=== PATIENT | female | born 1955 | race Caucasian/White ===

== ENCOUNTER 2020-05-30 15:45 | Inpatient (IN) | payer OTHER ==
[~2020-05-30] VITALS: Ht 152.4 cm; Wt 44.2 kg
[2020-05-30] MEDS ORDERED: hydrALAzine 20 MG/ML, 1ML ONE (15:57)
[2020-05-30] MEDS ORDERED: PLEASE ENTER HEIGHT AND WEIGHT MC SCH (16:00)
[2020-05-30] MEDS ORDERED: PLEASE ENTER ALLERGIES MC SCH (16:00)
[2020-05-30] MEDS ORDERED: hydrALAzine 20 MG/ML, 1ML IV ONE ×2 (16:00→17:00)
[2020-05-30] MEDS ORDERED: SODIUM CHLORIDE FLUSH 10ML SYR IVF ONE (16:00)
--- NOTE | 2020-05-30 16:00 | NUR ---
Neurology originally pagerd at [phone] Paged again on patient arrival at [phone]
[2020-05-30 16:01] LABS: BASOPHILS # (AUTO) 0.01 x10^3/uL (0-0.1); BASOPHILS % (AUTO) 0 % (0-1); EOSINOPHILS % (AUTO) 0 % (1-7); LYMPHOCYTES # (AUTO) 0.39 x10^3/uL (1-3.4); LYMPHOCYTES % (AUTO) 4 % (22-44); MD NO; MEAN CORPUSCULAR HGB CONC 33.2 g/dL (32.4-35.8); MEAN CORPUSCULAR VOLUME 96.4 fL (80-100); MEAN PLATELET VOLUME 8.3 fL (7.4-10.4); MONOCYTES # (AUTO) 0.22 x10^3/uL (0.2-0.8); MONOCYTES % (AUTO) 2 % (2-9); NEUTROPHILS # (AUTO) 8.38 x10^3/uL (1.8-6.8); NEUTROPHILS % (AUTO) 93 % (42-75); PLATELET COUNT 206 x10^3/uL (130-400); RED BLOOD COUNT 4.49 x10^6/uL (3.82-5.3); RED CELL DISTRIBUTION WIDTH 14.2 % (9.6-15.2)
[2020-05-30 16:13] LABS: ALBUMIN 3.8 g/dL (3.4-5.0); ANION GAP 6 mmol/L (5-15); CALCIUM 8.6 mg/dL (8.5-10.1); CHLORIDE 108 mmol/L (98-107)
--- NOTE | 2020-05-30 16:15 | NUR ---
LATE ENTRY: PT BIB CARE FLIGHT FROM [place] FOR LEFT SIDED WEAKNESS AND SLURRED SPEECH. LAST SEEN NORMAL AT 1030 TODAY. PT WAS SITTING IN HER CHAIR AT HER VACATION HOME AND SAID "ALL OF A SUDDEN I COULDNT GET OUT OF MY CHAIR SO I ROLLED ONTO THE GROUND". PT WAS FOUND ON THE GROUND BY HER AT 1230. PT STATES SHE HAS HTN BUT HASNT BEEN COMPLIANT WITH HER MEDICINE. 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 PT TAKEN TO CT SCAN. EKG COMPLETE. PT CONNECTED TO MONITORING EQUIPMENT. BLANKETS PROVIDED.
[2020-05-30 16:18] LABS: ALANINE AMINOTRANSFERASE 18 U/L (12-78); ALKALINE PHOSPHATASE 44 U/L (45-117); BILIRUBIN,TOTAL 0.4 mg/dL (0.2-1.0); CREATININE 0.75 mg/dL (0.55-1.02); TROPONIN I < 0.015 ng/mL (0.000-0.045)
[2020-05-30] MEDS ORDERED: ACETAMINOPHEN 325 MG TABLET PO PRN (16:30)
[2020-05-30] MEDS ORDERED: ENALAPRILAT 1.25 MG/ML, 2ML IVPush PRN (16:30)
[2020-05-30] MEDS ORDERED: SODIUM CHLORIDE 0.9% 1,000 ML IV SCH (16:30)
[2020-05-30] MEDS ORDERED: POLYETHYLENE GLYCOL 17 GM PACKET PO PRN (16:30)
[2020-05-30] MEDS ORDERED: OXYcodone IR 5MG TABLET PO PRN (16:30)
[2020-05-30] MEDS ORDERED: ONDANSETRON 2MG/ML, 2ML IVPush PRN (16:30)
[2020-05-30] MEDS ORDERED: BISACODYL 10 MG SUPP PR PRN (16:30)
[2020-05-30] MEDS ORDERED: OMNIPAQUE 350 MG/ML, 100ML BOTTLE ONE (16:35)
--- NOTE | 2020-05-30 16:47 | NUR ---
PT MEDICATED WITH HYDRALIZINE PER NOV. TREATMENT GOAL IS TO KEEP PATIENTS BLOOD PRESSURE BELOW 160 SYSTOLICLY. AFTER A TOTAL OF 20MG HYDRALAZINE PT BP IS 155/96. PT RESTING IN GURNEY. AOX4. HEAD IS AT A 45 DEGREE ANGLE
--- NOTE | 2020-05-30 17:07 | NUR ---
DR. PATINO, NEUROLOGIST PERFORMING ASSESSMENT VIA TELE MONITOR.
--- NOTE | 2020-05-30 17:44 | NUR ---
BREAK RN. PT RESTING IN BED, REMAINS ON MONITORS. PER ORDERS, PT'S SBP REMAINS BELOW 160, WILL CONT TO MONITOR BP, WILL START NICARDIPINE IF SBP >160 PER ORDERS. PT IS A&OX4, PROTECTING OWN AIRWAY WELL. PER PT'S DAUGHTER, PT'S SON NOT TO VISIT PT WHILE IN ER, WILL TELL WEATHERIZATION AND HOUSING INSPECTOR, WELL LOGGING OPERATOR MUD ANALYSIS, AND PRIMARY RN. CONT TO MONITOR.
--- NOTE | 2020-05-30 18:50 | NUR ---
PT MOVED TO A HOSPITAL BED
[2020-05-30 18:59] LABS: MICROSCOPIC NOT IND
--- NOTE | 2020-05-30 18:59 | NUR ---
PT RESTING IN [facility]. BP IS STABLE. WILL CONTINUE TO MONITOR
--- NOTE | 2020-05-30 20:14 | NUR ---
PT REQUESTS WATER. PT EDUCATED ON REASONING FOR NPO STATUS.
[2020-05-30 21:00] VITALS: BP 160/93
[2020-05-30 22:10] VITALS: BP 160/100
[2020-05-30] MEDS: hydrALAzine 20 MG/ML, 1ML IVPush PRN (22:44)
[2020-05-31 04:00] VITALS: BP 138/87
[2020-05-31 04:52] LABS: BASOPHILS # (AUTO) 0.03 x10^3/uL (0-0.1); BASOPHILS % (AUTO) 0 % (0-1); EOSINOPHILS # (AUTO) 0.01 x10^3/uL (0-0.4); EOSINOPHILS % (AUTO) 0 % (1-7); LYMPHOCYTES # (AUTO) 0.76 x10^3/uL (1-3.4); LYMPHOCYTES % (AUTO) 8 % (22-44); MD NO; MEAN CORPUSCULAR HEMOGLOBIN 31.8 pg (27.0-34.8); MEAN CORPUSCULAR VOLUME 96.3 fL (80-100); MEAN PLATELET VOLUME 8.7 fL (7.4-10.4); MONOCYTES % (AUTO) 4 % (2-9); NEUTROPHILS # (AUTO) 8.18 x10^3/uL (1.8-6.8); NEUTROPHILS % (AUTO) 87 % (42-75); PLATELET COUNT 211 x10^3/uL (130-400); RED BLOOD COUNT 4.52 x10^6/uL (3.82-5.3); RED CELL DISTRIBUTION WIDTH 14.1 % (9.6-15.2)
[2020-05-31 05:03] LABS: ALBUMIN 3.5 g/dL (3.4-5.0); ANION GAP 6 mmol/L (5-15); CALCIUM 8.8 mg/dL (8.5-10.1); CHLORIDE 111 mmol/L (98-107)
[2020-05-31 05:07] LABS: ALANINE AMINOTRANSFERASE 17 U/L (12-78); ALKALINE PHOSPHATASE 46 U/L (45-117); BILIRUBIN,TOTAL 0.5 mg/dL (0.2-1.0); CREATININE 0.82 mg/dL (0.55-1.02); TOTAL PROTEIN 6.6 g/dL (6.4-8.2)
[2020-05-31] MEDS ORDERED: POTASSIUM CHLORIDE 20 MEQ TAB.ER.PRT PO ONE (07:00)
[2020-05-31] MEDS ORDERED: POTASSIUM CHLORIDE 10% 40 MEQ/30 ML UDC PO ONE (08:00)
[2020-05-31] MEDS: SENNA/DOCUSATE TABLET PO SCH (09:06)
[2020-05-31] MEDS: CARVEDILOL 6.25 MG TABLET PO SCH ×2 (10:07→18:49)
[2020-05-31] MEDS: hydrALAzine 20 MG/ML, 1ML IVPush PRN ×2 (14:06→18:49)
[2020-06-01] MEDS: hydrALAzine 20 MG/ML, 1ML IVPush PRN ×4 (04:09→21:45)
[2020-06-01 04:35] VITALS: BP 164/107
[2020-06-01] MEDS: CARVEDILOL 6.25 MG TABLET PO SCH ×2 (05:43→17:53)
[2020-06-01] MEDS: SENNA/DOCUSATE TABLET PO SCH (08:27)
[2020-06-01] MEDS ORDERED: ENALAPRILAT 1.25 MG/ML, 2ML IVPush PRN (13:30)
[2020-06-01] MEDS: LISINOPRIL 10 MG TABLET PO SCH (20:12)
[2020-06-01 20:13] VITALS: BP 163/106
[2020-06-01 21:32] VITALS: BP 187/106
[2020-06-01 23:27] VITALS: BP 150/81
[2020-06-02] VITALS (11 sets, daily range): BP systolic 135–178; BP diastolic 75–116
[2020-06-02] MEDS: hydrALAzine 20 MG/ML, 1ML IVPush PRN (02:06)
[2020-06-02] MEDS: CARVEDILOL 6.25 MG TABLET PO SCH ×2 (05:49→18:01)
[2020-06-02 06:26] LABS: BASOPHILS # (AUTO) 0.04 x10^3/uL (0-0.1); BASOPHILS % (AUTO) 0 % (0-1); EOSINOPHILS # (AUTO) 0.08 x10^3/uL (0-0.4); EOSINOPHILS % (AUTO) 1 % (1-7); LYMPHOCYTES # (AUTO) 1.17 x10^3/uL (1-3.4); LYMPHOCYTES % (AUTO) 13 % (22-44); MD NO; MEAN CORPUSCULAR HEMOGLOBIN 31.6 pg (27.0-34.8); MEAN CORPUSCULAR HGB CONC 32.7 g/dL (32.4-35.8); MEAN CORPUSCULAR VOLUME 96.7 fL (80-100); MEAN PLATELET VOLUME 8.6 fL (7.4-10.4); MONOCYTES # (AUTO) 0.77 x10^3/uL (0.2-0.8); MONOCYTES % (AUTO) 9 % (2-9); NEUTROPHILS # (AUTO) 7.01 x10^3/uL (1.8-6.8); NEUTROPHILS % (AUTO) 77 % (42-75); PLATELET COUNT 210 x10^3/uL (130-400); RED BLOOD COUNT 4.93 x10^6/uL (3.82-5.3); RED CELL DISTRIBUTION WIDTH 14.2 % (9.6-15.2)
[2020-06-02 06:34] LABS: ANION GAP 6 mmol/L (5-15); CHLORIDE 110 mmol/L (98-107); CHOLESTEROL, TOTAL 174 mg/dL (140-239)
[2020-06-02 06:37] LABS: CHOL/HDL RATIO 3.1; HDL CHOL % 32 % (28-40); HDL CHOLESTEROL (DIRECT) 56 mg/dL (40-60); LDL CHOLESTEROL,CALCULATED 95 mg/dL (54-169); LDL/HDL RATIO 1.7 (0.5-3.0); TRIGLYCERIDES 115 mg/dL (50-200); VLDL CHOLESTEROL 23 mg/dL (0-25)
[2020-06-02] MEDS: LISINOPRIL 10 MG TABLET PO SCH ×2 (08:58→20:31)
[2020-06-02] MEDS: SENNA/DOCUSATE TABLET PO SCH (08:58)
[2020-06-02] MEDS ORDERED: POTASSIUM CHLORIDE 20 MEQ TAB.ER.PRT PO ONE (15:00)
[2020-06-03 00:45] VITALS: BP_SYST 159; BP_SYST 168; BP_DIAS 101; BP_DIAS 88
[2020-06-03] MEDS: hydrALAzine 20 MG/ML, 1ML IVPush PRN (00:55)
[2020-06-03 04:11] VITALS: BP 149/88
[2020-06-03 05:09] LABS: ANION GAP 7 mmol/L (5-15); CALCIUM 8.7 mg/dL (8.5-10.1); CHLORIDE 110 mmol/L (98-107); CREATININE 0.81 mg/dL (0.55-1.02)
[2020-06-03] MEDS: CARVEDILOL 6.25 MG TABLET PO SCH ×2 (05:38→17:43)
[2020-06-03] MEDS ORDERED: POTASSIUM CHLORIDE 20 MEQ TAB.ER.PRT PO ONE (09:00)
[2020-06-03] MEDS: SENNA/DOCUSATE TABLET PO SCH (09:00)
[2020-06-03] MEDS: LISINOPRIL 10 MG TABLET PO SCH ×2 (09:00→20:54)
[2020-06-03 09:06] VITALS: BP 165/100
[2020-06-03] MEDS: HYDROCHLOROTHIAZIDE 25 MG TABLET PO SCH (10:22)
[2020-06-03 10:24] VITALS: BP 145/90
[2020-06-03 12:16] VITALS: BP 136/96
[2020-06-03 19:12] VITALS: BP 128/81
[2020-06-04 01:08] VITALS: BP 158/98
[2020-06-04 05:31] VITALS: BP 159/98
[2020-06-04 05:34] LABS: CHLORIDE 109 mmol/L (98-107)
[2020-06-04] MEDS: CARVEDILOL 6.25 MG TABLET PO SCH ×2 (05:36→18:09)
[2020-06-04 05:47] LABS: ALANINE AMINOTRANSFERASE 16 U/L (12-78); ALBUMIN 3.2 g/dL (3.4-5.0); ALKALINE PHOSPHATASE 40 U/L (45-117); ANION GAP 8 mmol/L (5-15); CALCIUM 8.8 mg/dL (8.5-10.1); CREATININE 0.71 mg/dL (0.55-1.02); TOTAL PROTEIN 6.4 g/dL (6.4-8.2)
[2020-06-04 07:50] VITALS: BP 149/91
[2020-06-04] MEDS: LISINOPRIL 10 MG TABLET PO SCH ×2 (08:32→20:29)
[2020-06-04] MEDS: HYDROCHLOROTHIAZIDE 25 MG TABLET PO SCH (08:32)
[2020-06-04] MEDS: SENNA/DOCUSATE TABLET PO SCH (08:33)
[2020-06-04] MEDS ORDERED: AMLODIPINE 5 MG TABLET PO SCH (09:30)
[2020-06-04 12:21] VITALS: BP 153/62
[2020-06-04 18:37] VITALS: BP 135/86
[2020-06-04] MEDS: AMLODIPINE 5 MG TABLET PO SCH (20:30)
[2020-06-05] VITALS (8 sets, daily range): BP systolic 104–154; BP diastolic 68–97
[2020-06-05] MEDS: CARVEDILOL 6.25 MG TABLET PO SCH ×2 (05:07→17:38)
[2020-06-05] MEDS: AMLODIPINE 5 MG TABLET PO SCH ×2 (09:46→20:21)
[2020-06-05] MEDS: LISINOPRIL 10 MG TABLET PO SCH ×2 (09:46→20:21)
[2020-06-05] MEDS: SENNA/DOCUSATE TABLET PO SCH ×2 (09:46→09:48)
[2020-06-05] MEDS: HYDROCHLOROTHIAZIDE 25 MG TABLET PO SCH (09:46)
[2020-06-06 02:26] VITALS: BP 130/72
[2020-06-06 05:30] VITALS: BP 120/81
[2020-06-06] MEDS: CARVEDILOL 6.25 MG TABLET PO SCH ×2 (05:34→17:18)
[2020-06-06 07:04] VITALS: BP 116/74
[2020-06-06] MEDS: HYDROCHLOROTHIAZIDE 25 MG TABLET PO SCH (09:00)
[2020-06-06] MEDS: AMLODIPINE 5 MG TABLET PO SCH ×2 (09:00→21:17)
[2020-06-06] MEDS: LISINOPRIL 10 MG TABLET PO SCH ×2 (09:00→21:17)
[2020-06-06] MEDS: SENNA/DOCUSATE TABLET PO SCH (09:00)
[2020-06-06 12:33] VITALS: BP 111/73
[2020-06-06 21:11] VITALS: BP 127/81
[2020-06-07 01:16] VITALS: BP 125/79
[2020-06-07 06:19] VITALS: BP 126/82
[2020-06-07] MEDS: CARVEDILOL 6.25 MG TABLET PO SCH ×2 (06:20→18:06)
[2020-06-07] MEDS: SENNA/DOCUSATE TABLET PO SCH (09:00)
[2020-06-07] MEDS: HYDROCHLOROTHIAZIDE 25 MG TABLET PO SCH (11:02)
[2020-06-07] MEDS: AMLODIPINE 5 MG TABLET PO SCH ×2 (11:02→19:55)
[2020-06-07] MEDS: LISINOPRIL 10 MG TABLET PO SCH ×2 (11:03→19:55)
[2020-06-07 12:20] VITALS: BP 131/78
[2020-06-07 19:25] VITALS: BP 110/72
[2020-06-07 23:33] VITALS: BP 104/69
[2020-06-08 00:39] VITALS: BP 105/60
[2020-06-08 06:13] VITALS: BP 133/86
[2020-06-08] MEDS: CARVEDILOL 6.25 MG TABLET PO SCH (06:14)
[2020-06-08 07:34] VITALS: BP 112/75
[2020-06-08] MEDS ORDERED: AMLO-150 PO (09:12)
[2020-06-08] MEDS ORDERED: CARV6.2512 PO (09:12)
[2020-06-08] MEDS ORDERED: HYDR-3342 PO (09:12)
[2020-06-08] MEDS ORDERED: HYDR25TA6 PO (09:12)
[2020-06-08] MEDS ORDERED: ACET325T26 PO (09:12)
[2020-06-08] MEDS ORDERED: LISI-167 PO (09:12)
[2020-06-08 10:09] VITALS: BP 131/77
[2020-06-08] MEDS: LISINOPRIL 10 MG TABLET PO SCH (10:12)
[2020-06-08] MEDS: SENNA/DOCUSATE TABLET PO SCH (10:12)
[2020-06-08] MEDS: AMLODIPINE 5 MG TABLET PO SCH (10:12)
[2020-06-08] MEDS: HYDROCHLOROTHIAZIDE 25 MG TABLET PO SCH (10:13)
[2020-06-08 12:06] VITALS: BP 143/87
== END 2020-06-08 14:01 | DRG 64 ==
LOC: ED 17:35 → EDIP 17:46 → CCU 20:53 → 4WST 06-01 20:12
PROVIDERS: ADMIT Internal Medicine; ATTEND Internal Medicine
DX: I61.3 Nontraumatic intracerebral hemorrhage in brain stem (principal); G93.6 Cerebral edema; G93.41 Metabolic encephalopathy; I16.1 Hypertensive emergency; G81.94 Hemiplegia, unspecified affecting left nondominant side; I61.0 Nontraumatic intracerebral hemorrhage in hemisphere, subcortical; E87.6 Hypokalemia; E11.65 Type 2 diabetes mellitus with hyperglycemia; I10 Essential (primary) hypertension; R29.810 Facial weakness; R47.81 Slurred speech; Z82.5 Family history of asthma and other chronic lower respiratory diseases; Z86.73 Personal history of transient ischemic attack (TIA), and cerebral infarction without residual deficits; Z91.14 Patient's other noncompliance with medication regimen; Z91.19 Patient's noncompliance with other medical treatment and regimen; R29.710 NIHSS score 10
CPT/HCPCS: 36415; 70450; 70496; 70498; 70551; 71045; 80048; 80053; 80061; 81003; 83036; 84484; 85025; 87081; 93005; 93306; 96374; G0378; J2405; Q9967; 92523-GN; J0360; J7030